=== PATIENT | female | born 1940 ===

== ENCOUNTER 2021-10-14 13:04 | Outpatient (CLI) | payer OTHER | END 2021-10-14 13:22 | disposition home or self-care (01) | LOC: RAD 13:04 | PROVIDERS: ATTEND Internal Medicine Pulmonary Disease | DX: I10 Essential (primary) hypertension (principal); J20.8 Acute bronchitis due to other specified organisms ==

== ENCOUNTER 2024-02-26 12:47 | Outpatient (CLI) | payer OTHER | END 2024-02-26 12:57 | disposition home or self-care (01) | LOC: RAD 12:47 | PROVIDERS: ATTEND Ophthalmology | DX: Z01.810 Encounter for preprocedural cardiovascular examination (principal) ==

== ENCOUNTER 2024-09-15 15:14 | Outpatient (CLI) | payer OTHER | END 2024-09-15 15:21 | disposition home or self-care (01) | LOC: RAD 15:14 | DX: M99.03 Segmental and somatic dysfunction of lumbar region (principal); M99.04 Segmental and somatic dysfunction of sacral region ==

== ENCOUNTER 2025-10-16 13:37 | Outpatient (CLI) | payer OTHER | END 2025-10-16 13:39 | disposition home or self-care (01) | LOC: RAD 13:37 | PROVIDERS: ATTEND Internal Medicine Pulmonary Disease | DX: M19.90 Unspecified osteoarthritis, unspecified site (principal) ==